=== PATIENT | female | born 1950 | race Caucasian/White ===

== ENCOUNTER 2017-12-22 04:22 | Emergency (ER) | payer MEDICARE, OTHER ==
--- NOTE | 2017-12-22 04:42 | ED ---
General Adult HPI - General Chief complaint: Extremity Injury, Lower Stated complaint: foot pain Time Seen by Provider: 12/22/17 04:40 Source: patient Mode of arrival: ambulatory Limitations: no limitations - History of Present Illness Initial comments: Dayanna is a 67-year-old female who presents the emergency department for evaluation of light foot pain and swelling. She reports that approximately 5 days ago she was walking in flip flops and gravel when she tripped and stubbed her toes. She reports that since that time she's noticed progressively worsening bruising and swelling of her feet specifically the third and fourth toes. She was concerned he may be broken so she came to the ER for evaluation. Patient states that this occurred while she was camping in [place] and known to seek care there so she waited 5 days until her vacation was over to come here. She has been ambulatory with minimal pain. She has not been taking her medications for the pain. Been elevating the foot at night and putting ice on it to relieve this pain and swelling. - Related Data Allergies Allergy/AdvReac Type Severity Reaction Status Date / Time No Known Allergies Allergy Verified 12/22/17 04:33 Review of Systems ROS Statement: Those systems with pertinent positive or pertinent negative responses have been documented in the HPI. ROS Other: All systems not noted in ROS Statement are negative. Past Medical History Past Medical History: Diabetes Mellitus, Hyperlipidemia, Hypertension, Osteoarthritis (OA) History of Any Multi-Drug Resistant Organisms: None Reported Additional Past Surgical History / Comment(s): right wrist surgery Past Psychological History: No Psychological Hx Reported Smoking Status: Never smoker Past Alcohol Use History: Rare Past Drug Use History: None Reported General Exam - General Exam Comments Initial Comments: GENERAL: Patient is well-developed and well-nourished. Patient is nontoxic and well- hydrated and is in no distress. HENT: Normocephalic, Atraumatic. EYES: PERRL, EOMI PULMONARY: Unlabored respirations. CARDIOVASCULAR: There is a regular rate and rhythm without any murmurs gallops or rubs. ABDOMEN: Soft and nontender with normal bowel sounds. SKIN: RIght toes bruised, bruises are multi colored and healing NEUROLOGIC: Patient is alert and oriented x3. Cranial nerves II through XII are grossly intact. Symmetrical smile. Motor and sensory are also intact. Normal speech, volume and content. MUSCULOSKELETAL: Normal extremities with adequate strength, ROM of right toes limited by pain and swelling PSYCHIATRIC: Normal psychiatric evaluation. Limitations: no limitations Limitations: no limitations Course Vital Signs 12/22/17 12/22/17 04:29 06:23 Temperature 97.6 F 97.8 F Pulse Rate 63 70 Respiratory 16 17 Rate Blood Pressure 151/82 147/85 O2 Sat by Pulse 99 99 Oximetry Medical Decision Making - Medical Decision Making Patient was seen and evaluated, x-rays were ordered Physical exam is concerning for fracture with swelling and bruising has been ambulatory. Fractures approximately 5 days old. X-ray confirms a fracture, patient was given a walking boot for comfort as she doesn't have any issues that can accommodate the swelling of her foot. Rest ice and elevation were discussed with the patient which she has been doing. Patient doesn't feel she needs any further pain management. Patient has crutches at bedside. All questions pertaining to care were answered return parameters were discussed the patient was discharged home in stable condition. Disposition Clinical Impression: Toe fracture, right Disposition: HOME SELF-CARE Condition: Good Instructions: Toe Fracture (ED) Is patient prescribed a controlled substance at d/c from ED?: No Referrals: Nonstaff,Physician [Primary Care Provider] - 1-2 days Time of Disposition: 05:56
--- NOTE | 2017-12-22 05:36 | XR ---
EXAMINATION TYPE: XR foot limited RT DATE OF EXAM: 12/22/2017 COMPARISON: NONE HISTORY: Ankle and foot pain TECHNIQUE: 3 views FINDINGS: There is nondisplaced oblique fracture of the distal shaft of the third metatarsal. There i s a plantar calcaneal spur. There is soft tissue swelling of the forefoot. IMPRESSION: Distal third metatarsal fracture. Soft tissue swelling.
--- NOTE | 2017-12-22 05:44 | XR ---
EXAMINATION TYPE: XR ankle complete RT DATE OF EXAM: 12/22/2017 COMPARISON: NONE HISTORY: Ankle pain TECHNIQUE: 3 views FINDINGS: There is some soft tissue swelling around the ankle joint. There is a plantar calcaneal spu r. Ankle mortise is anatomic. I see no fracture nor dislocation. IMPRESSION: Soft tissue swelling. No ankle fracture seen.
[2017-12-22 06:24] VITALS: BP 147/85; PULSE 70; RESP 17; TEMP 97.8
== END 2017-12-22 06:24 | disposition home or self-care (01) ==
LOC: EC 04:22
DX: S92.911A Unspecified fracture of right toe(s), initial encounter for closed fracture (principal); M19.90 Unspecified osteoarthritis, unspecified site; W01.0XXA Fall on same level from slipping, tripping and stumbling without subsequent striking against object, initial encounter; Y93.01 Activity, walking, marching and hiking; Y92.833 Campsite as the place of occurrence of the external cause
CPT/HCPCS: 99283